=== PATIENT | female | born 1985 | race Caucasian/White ===

== ENCOUNTER 2017-02-04 12:44 | Emergency (ER) | payer OTHER ==
[~2017-02-04] VITALS: Ht 160 cm; Wt 97.9 kg
[~2017-02-04 12:44] MED LIST: LEVOTHYROXINE25 MCG PO; LISINOPRIL10 MG PO; PRILOSEC20 MG PO; TECFIDERA1 EACH PO; ULTRACET1 TABLET PO; ULTRAM50 MG PO; ZOFRAN ODT4 MG PO
[2017-02-04 16:05] VITALS: BP 118/74
== END 2017-02-04 16:06 | disposition home or self-care (01) ==
LOC: EME 12:44
DX: S93.401A Sprain of unspecified ligament of right ankle, initial encounter (principal); X58.XXXA Exposure to other specified factors, initial encounter; Y93.89 Activity, other specified
CPT/HCPCS: 73610; 99281; 99284

== ENCOUNTER 2017-07-17 09:36 | Emergency (ER) | payer BC ==
[~2017-07-17] VITALS: Ht 160 cm; Wt 120.3 kg
[2017-07-17 10:14] LABS: HEMATOCRIT 38.9 % (36.0-46.0); HEMOGLOBIN 12.8 G/DL (11.9-15.5); MCH 27.8 PG (29.0-34.0); MCHC 32.9 G/DL (30.0-36.0); MCV 84.6 FL (83-99); PLATELET COUNT 312 K/uL (156-360); RBC DIS.WIDTH-CV 12.8 % (11.8-14.6); RBC DIS.WIDTH-SD 39.3 % (39-53)
[2017-07-17 10:21] LABS: CHLORIDE 108 mEq/L (99-109)
[2017-07-17 10:22] LABS: SODIUM 137 mEq/L (136-147)
[2017-07-17 10:24] LABS: GLUCOSE 92 mg/dL (70-99)
[2017-07-17 10:26] LABS: TOTAL BILIRUBIN 0.4 mg/dL (0.0-1.0)
[2017-07-17 10:27] LABS: ALKALINE PHOSPHATASE 67 IU/L (3-129); CREATININE 0.7 mg/dL (0.6-1.3); GFR ESTIMATE (CALCULATED) > 59 mL/min/
[2017-07-17 10:29] LABS: AST (GOT) 15 IU/L (2-34); UREA NITROGEN (BUN) 6 mg/dL (9-23)
[2017-07-17 10:30] LABS: ALT (GPT) 14 IU/L (3-49)
[2017-07-17 10:32] LABS: APPEARANCE CLEAR ((CLEAR)); BILIRUBIN NEGATIVE; BLOOD MODERATE; COLOR YELLOW ((YELLOW)); GLUCOSE (STRIP) NEGATIVE; KETONES NEGATIVE; LEUKOCYTES NEGATIVE; NITRITE NEGATIVE; PROTEIN (STRIP) NEGATIVE; SPECIFIC GRAVITY 1.009 (1.000-1.030); UROBILINOGEN 0.2 MG/DL (0.2-1.0)
[2017-07-17 10:37] LABS: BACTERIA NONE SEEN /HPF; EPITHELIAL CELLS RARE /HPF; MUCUS TRACE /LPF; RED BLOOD CELLS 0-5 /HPF (0-5); UCUL ADDED? NO; WHITE BLOOD CELLS 0-5 /HPF (0-5)
[2017-07-17 10:38] LABS: QUANTITATIVE HCG < 4.0 MIU/ML
[2017-07-17 13:41] LABS: LIPASE 6 U/L (1.0-51.0)
[2017-07-17] MEDS ORDERED: ZANTAC150 MG PO (14:16)
[2017-07-17 14:28] VITALS: BP 124/63
== END 2017-07-17 14:39 | disposition home or self-care (01) ==
LOC: EME 09:36
DX: R10.13 Epigastric pain (principal); I10 Essential (primary) hypertension; G35 Multiple sclerosis; E03.9 Hypothyroidism, unspecified
CPT/HCPCS: 76705; 80053; 81003; 83690; 84702; 85027; 99281; 99284